=== PATIENT | female | born 1985 | race Hispanic/Latino ===

== ENCOUNTER 2017-10-08 16:29 | Emergency (ER) | payer BC ==
--- NOTE | 2017-10-08 17:12 | RAD ---
RIGHT ANKLE THREE VIEWS 10/08/17 CLINICAL HISTORY: Pain, fall. FINDINGS: There is mild osseous irregularity at the fibular tip with overlying soft tissue swelling. Mortise is intact. There are dorsal and calcaneal enthesophytes of the hindfoot. IMPRESSION: Osseous irregularity at the fibular tip with overlying soft tissue swelling. Correlate for new onset focal pain to evaluate for acute avulsive injury. As necessary, imaging followup may be obtained. POS: [facility]AT
== END 2017-10-08 18:01 | disposition home or self-care (01) ==
LOC: ERS 16:29
DX: S82.831A Other fracture of upper and lower end of right fibula, initial encounter for closed fracture (principal); X50.1XXA Overexertion from prolonged static or awkward postures, initial encounter; Y93.01 Activity, walking, marching and hiking